=== PATIENT | female | born 2000 | race Caucasian/White ===

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

== ENCOUNTER 2019-01-01 08:35 | Emergency (ER) | payer MEDICAID, OTHER ==
[~2019-01-01] VITALS: Ht 157.5 cm; Wt 105.0 kg
[2019-01-01 08:44] VITALS: BP 136/97
== END 2019-01-01 09:53 | disposition home or self-care (01) ==
LOC: ER 08:35
DX: J02.8 Acute pharyngitis due to other specified organisms (principal); B97.89 Other viral agents as the cause of diseases classified elsewhere; F41.9 Anxiety disorder, unspecified; F12.90 Cannabis use, unspecified, uncomplicated
CPT/HCPCS: 87081; 87880; 99283

== ENCOUNTER 2019-05-14 21:53 | Inpatient (IN) | payer OTHER, MEDICAID ==
[~2019-05-14] VITALS: Ht 157.5 cm; Wt 93.5 kg
[2019-05-14] MEDS ORDERED: loperamide 2mg capsule PO PRN (22:45)
[2019-05-14] MEDS ORDERED: mag hydrox/Alum hydrox/simeth 30ml oral suspension PO PRN (22:45)
[2019-05-14] MEDS ORDERED: acetaminophen 325mg tablet PO PRN (22:45)
[2019-05-14] MEDS ORDERED: haloperidol 1mg tablet PO PRN (22:45)
[2019-05-14] MEDS ORDERED: QUET-1 PO (22:50)
[2019-05-14] MEDS: LORazepam 1 MG tablet PO PRN (23:17)
[2019-05-14] MEDS: haloperidol 5mg tablet PO PRN (23:18)
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
[2019-05-15 01:53] VITALS: BP 119/83
[2019-05-15 07:59] VITALS: BP 103/60
[2019-05-15] MEDS: LORazepam 1 MG tablet PO PRN (08:50)
[2019-05-15 09:14] LABS: CHOL/HDL RATIO 2.8 (0.00-4.99); CHOLESTEROL 111 MG/DL (0-200); HDL CHOLESTEROL 40 MG/DL (35-60); LDL CHOLESTEROL 63 MG/DL (50-100); TRIGLYCERIDES 69 MG/DL (20-135)
[2019-05-15 09:15] LABS: HEMOGLOBIN A1C 5.4 % (4.5-6.2)
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
--- NOTE | 2019-05-15 15:47 | NUR ---
Malnutrition consult: Pt unsure if wt loss however reports decreased appetite per malnutrition screen with RN. Pt with documented wt hx of 105 kg taken 01/01/19 however this appears to be an outlier as previous scaled weights are stable around 89-91 kg. Current scaled wt is 91.85 kg. Pt currently on regular diet documented with average 50% PO intake x 2 meals not meeting nutrient needs. Pt with no decrease in muscle strength or edema. Pt currently lacks a minimum of two criteria for malnutrition. Will continue to follow and monitor need for nutrition intervention. Addendum: 05/15/19 at [address] Amended: Links added.
[2019-05-15] MEDS: LORazepam 1 MG tablet PO SCH ×2 (17:49→22:19)
[2019-05-15] MEDS: haloperidol 5mg tablet PO PRN (17:49)
--- NOTE | 2019-05-15 18:23 | NUR ---
INCREASED ANXIETY AND FEARFULNESS The patient had increased anxiety and fear due to incidents on the unit involving other patients which were loud and frightening to her. She was on the floor hiding and required quite a bit of reassurance to get back into bed. C/O hearing voices and appeared to be RIS. New orders received for Ativan, and also given Haldol.
[2019-05-15 20:00] VITALS: BP 153/99
[2019-05-15] MEDS ORDERED: lithium carbonate 150mg capsule PO SCH (21:00)
[2019-05-15] MEDS: quetiapine 100mg tablet PO SCH (21:09)
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
[2019-05-16] MEDS: LORazepam 1 MG tablet PO SCH ×4 (02:00→20:30)
--- NOTE | 2019-05-16 02:02 | NUR ---
Mother's Contact Information: Ana or
[2019-05-16 07:31] VITALS: BP 139/93
[2019-05-16] MEDS ORDERED: risperiDONE 0.5mg tablet PO SCH (08:00)
[2019-05-16] MEDS ORDERED: FLU VACC QS2019-20 36MOS UP/PF 60 MCG/0.5 ML SYRINGE IMVAC ONE (10:00)
--- NOTE | 2019-05-16 13:45 | NUR ---
ATTEMPTED TO REACH MOTHER Attempted to call Pamela's mother, Ana (ph# and ) at both phone #'s. Left message on first # and was unable to leave a message on the 2nd #. Will continue to try to reach her. ESTHER Robb
[2019-05-16] MEDS ORDERED: haloperidol lactate 5mg/ml inj ONE ×2 (14:04→14:08)
[2019-05-16] MEDS ORDERED: LORazepam 2 mg/ml vial ONE (14:05)
[2019-05-16] MEDS ORDERED: diphenhydrAMINE 50 mg/ml inj ONE (14:05)
[2019-05-16 15:00] VITALS: BP 137/89
[2019-05-16 15:15] VITALS: BP 134/106
--- NOTE | 2019-05-16 15:55 | NUR ---
ATTEMPTED ELOPEMENT At approximately 1400 patient was walking in hallway, with sitter near alarmed exit nearest to the Group Room, tried to exit the door, staff intervened and the patient became combative punching, kicking and spitting. She was escorted to her room where her behavior escalated. She was taken to Observation Room and restrained. She was given ([id number]) Ativan, Benedryl, Haldol injection. She was able to calm down and at approximately 1540 she was able to go back to her own room where she is now resting comfortably.
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
[2019-05-16] MEDS: risperiDONE 0.5mg tablet PO SCH (20:00)
[2019-05-16] MEDS: lithium carbonate 150mg capsule PO SCH (20:00)
[2019-05-16] MEDS: quetiapine 100mg tablet PO SCH (20:30)
[2019-05-16] MEDS ORDERED: diphenhydrAMINE 50 mg/ml inj IM ONE (20:45)
[2019-05-16] MEDS ORDERED: haloperidol lactate 5mg/ml inj IM ONE (20:45)
[2019-05-16] MEDS ORDERED: LORazepam 2 mg/ml vial IM ONE (20:45)
[2019-05-17] MEDS: LORazepam 1 MG tablet PO SCH ×3 (02:00→20:00)
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
[2019-05-17] MEDS: risperiDONE 0.5mg tablet PO SCH ×2 (08:06→20:00)
[2019-05-17] MEDS: lithium carbonate 150mg capsule PO SCH ×2 (08:07→20:00)
[2019-05-17] MEDS ORDERED: LORazepam 1 MG tablet PO SCH (14:00)
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
[2019-05-17] MEDS: LORazepam 1 MG tablet PO PRN (15:34)
--- NOTE | 2019-05-17 15:51 | NUR ---
MEDICAL RECORDS REQUEST Faxed request for medical records to [facility] in [place], [place]. ESTHER Robb
[2019-05-17] MEDS: haloperidol 5mg tablet PO PRN (15:53)
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
[2019-05-17] MEDS ORDERED: QUEtiapine 25mg tablet PO SCH (21:00)
[2019-05-18] MEDS: LORazepam 1 MG tablet PO SCH ×5 (02:00→20:48)
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
[2019-05-18 07:30] VITALS: BP 150/100
[2019-05-18] MEDS: lithium carbonate 150mg capsule PO SCH ×2 (07:41→20:49)
[2019-05-18] MEDS: risperiDONE 0.5mg tablet PO SCH ×2 (07:48→08:47)
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
[2019-05-18 19:45] VITALS: BP 128/73
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
[2019-05-19] MEDS: LORazepam 1 MG tablet PO SCH ×4 (02:00→20:19)
[2019-05-19 07:34] VITALS: BP 129/79
[2019-05-19] MEDS: lithium carbonate 150mg capsule PO SCH ×2 (07:45→20:19)
[2019-05-19] MEDS: PALIPERIDONE 3 MG TAB.ER.24 PO SCH (07:45)
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
[2019-05-19] MEDS: magnesium hydroxide 30ml (MOM) UD suspension PO PRN (14:16)
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
[2019-05-19 19:31] VITALS: BP 133/81
[2019-05-19] MEDS: docusate sod 100mg capsule PO SCH (20:18)
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
[2019-05-20] MEDS: LORazepam 1 MG tablet PO SCH ×4 (02:00→21:55)
[2019-05-20 07:29] VITALS: BP 124/69
[2019-05-20] MEDS: lithium carbonate 150mg capsule PO SCH ×2 (07:42→21:55)
[2019-05-20] MEDS: PALIPERIDONE 3 MG TAB.ER.24 PO SCH (07:43)
[2019-05-20] MEDS: docusate sod 100mg capsule PO SCH ×2 (07:43→21:55)
[2019-05-20] MEDS: venlafaxine XR 37.5mg cap (Q24H) PO SCH (07:43)
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
[2019-05-20] MEDS ORDERED: ondansetron 4mg rapidly disintigrating tab PO PRN ×2 (14:45→16:00)
[2019-05-20] MEDS: ondansetron 4mg rapidly disintigrating tab PO PRN (15:29)
--- NOTE | 2019-05-20 19:54 | NUR ---
Discussed case with Seun Blair, and order obtained to D/C LOS, spoke with patient prior to doing so and instructed to let staff know if she has any needs or problems that arise. She verbalized understanding, she is clear and coherent.
[2019-05-20 20:31] VITALS: BP 133/85
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
[2019-05-21] MEDS: LORazepam 1 MG tablet PO SCH ×2 (02:00→07:42)
[2019-05-21] MEDS: venlafaxine XR 37.5mg cap (Q24H) PO SCH (07:42)
[2019-05-21] MEDS: PALIPERIDONE 3 MG TAB.ER.24 PO SCH ×2 (07:42→20:26)
[2019-05-21] MEDS: docusate sod 100mg capsule PO SCH ×2 (07:42→20:26)
[2019-05-21] MEDS: lithium carbonate 150mg capsule PO SCH ×2 (07:43→20:26)
[2019-05-21 07:49] VITALS: BP 128/77
[2019-05-21] MEDS: acetaminophen 325mg tablet PO PRN (13:09)
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
[2019-05-21 19:54] VITALS: BP 152/94
[2019-05-21] MEDS: QUEtiapine 25mg tablet PO PRN ×2 (20:26→23:23)
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
[2019-05-22] MEDS: docusate sod 100mg capsule PO SCH ×2 (08:04→20:43)
[2019-05-22] MEDS: lithium carbonate 150mg capsule PO SCH ×2 (08:04→20:43)
[2019-05-22] MEDS: venlafaxine XR 37.5mg cap (Q24H) PO SCH (08:09)
[2019-05-22 08:59] VITALS: BP 155/97
--- NOTE | 2019-05-22 11:14 | NUR ---
Faxed Medical Records request to [facility] for Pamela's ER visit on 05/07/19. ESTHER Robb
--- NOTE | 2019-05-22 11:46 | NUR ---
Reassessment: PO fluctuating average PO intake about 50% regular diet. Per MD note, patient c/o nausea and is receiving zofran. Last BM 05/21; has prn milk of magnesia last given 05/19. Weight is stable. Pt with documented wt hx of 105 kg taken 01/01/19 however this appears to be an outlier as previous scaled weights are stable around 89-91 kg. Current scaled wt is 91.85 kg. Will continue to monitor. Rec: 1. continue regular diet; encourage PO 2. bowel care as needed 3. weekly wts Addendum: 05/22/19 at [address] Amended: Links added.
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
[2019-05-22] MEDS: hydrOXYzine 25 MG tablet PO PRN ×3 (12:23→22:32)
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
--- NOTE | 2019-05-22 18:42 | NUR ---
Art Therapy/Brainspotting 1:1 - The below named therapist, met with patient per request from both the patient and the treatment team to assist patient with the reduction of anxiety and internalized distress. Intervention: Provided attuned empathic listening to identify a Resource Spot using bi-lateral sound, with art expression. Patient reported a reduction in her emotional distress having found a "calm spot" she was able to focus on and experience. Patient noted her place of calm was a 5/10 using the SUDS. Will follow up and remain available for support as determined by the needs of this patient and the treatment team. Anna Javed MA, SEO ASSISTANT #[id number] [facility] Art Therapist
[2019-05-22 20:01] VITALS: BP 171/107
[2019-05-22] MEDS: PALIPERIDONE 3 MG TAB.ER.24 PO SCH (20:44)
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
[2019-05-23 08:00] VITALS: BP 151/101
[2019-05-23] MEDS: docusate sod 100mg capsule PO SCH ×2 (08:00→20:44)
[2019-05-23] MEDS: venlafaxine XR 37.5mg cap (Q24H) PO SCH (08:00)
[2019-05-23] MEDS: lithium carbonate 150mg capsule PO SCH ×2 (08:01→20:43)
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
[2019-05-23 20:00] VITALS: BP 134/80
[2019-05-23] MEDS: PALIPERIDONE 3 MG TAB.ER.24 PO SCH (20:43)
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
[2019-05-24] MEDS: hydrOXYzine 25 MG tablet PO PRN (01:42)
[2019-05-24] MEDS: docusate sod 100mg capsule PO SCH ×2 (07:50→21:29)
[2019-05-24] MEDS: venlafaxine XR 37.5mg cap (Q24H) PO SCH (07:50)
[2019-05-24] MEDS: lithium carbonate 150mg capsule PO SCH ×2 (07:51→21:29)
[2019-05-24 08:00] VITALS: BP 114/106
--- NOTE | 2019-05-24 13:44 | NUR ---
Reassessment: PO fluctuating average PO intake about 50% regular diet; appetite increasing slightly from admission. Poor appetite likely r/t HPI. Last BM 05/22; has prn milk of magnesia last given 05/19 and receiving routine colace. Weight is stable. Will continue to monitor. Rec: 1. continue regular diet; encourage PO 2. bowel care as needed 3. weekly wts Addendum: 05/24/19 at [address] Amended: Links added.
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
[2019-05-24 20:00] VITALS: BP 121/75
[2019-05-24] MEDS ORDERED: prazosin 1mg capsule PO SCH (21:00)
[2019-05-24] MEDS: PALIPERIDONE 3 MG TAB.ER.24 PO SCH (21:29)
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
[2019-05-25 08:00] VITALS: BP 141/95
[2019-05-25] MEDS: lithium carbonate 150mg capsule PO SCH (08:33)
[2019-05-25] MEDS: docusate sod 100mg capsule PO SCH ×2 (08:33→20:47)
[2019-05-25] MEDS: venlafaxine XR 37.5mg cap (Q24H) PO SCH (08:33)
--- NOTE | 2019-05-25 12:25 | NUR ---
Reassessment: PO intake up to 75-100% since RD assessment. [facility] 05/24. No nutrition intervention warranted at this time. Will continue to follow. Addendum: 05/25/19 at [address] Amended: Links added.
[2019-05-25] MEDS: hydrOXYzine 25 MG tablet PO PRN (12:35)
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
[2019-05-25 20:05] VITALS: BP 141/84
[2019-05-25] MEDS ORDERED: lithium carbonate 150mg capsule PO SCH (21:00)
[2019-05-25] MEDS ORDERED: prazosin 1mg capsule PO SCH (21:00)
[2019-05-25] MEDS ORDERED: PALIPERIDONE 3 MG TAB.ER.24 PO SCH (21:00)
[2019-05-25] MEDS: LORazepam 1 MG tablet PO PRN (23:46)
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
[2019-05-26 07:48] VITALS: BP 129/84
[2019-05-26 07:53] LABS: HCG SERUM QL NEGATIVE
[2019-05-26] MEDS: ondansetron 4mg rapidly disintigrating tab PO PRN (07:55)
[2019-05-26 07:59] LABS: BETA HCG,QUANTITATIVE < 1.0 mIU/ml
[2019-05-26] MEDS: docusate sod 100mg capsule PO SCH ×2 (08:49→20:26)
[2019-05-26] MEDS: venlafaxine XR 37.5mg cap (Q24H) PO SCH (08:50)
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
[2019-05-26] MEDS ORDERED: benztropine 1mg tablet PO PRN (18:25)
[2019-05-26] MEDS: acetaminophen 325mg tablet PO PRN (19:22)
[2019-05-26 19:41] VITALS: BP 137/85
[2019-05-26 20:20] VITALS: BP 137/85
[2019-05-26] MEDS: lithium carbonate 150mg capsule PO SCH (20:25)
[2019-05-26] MEDS: traZODone 50mg tablet PO SCH (20:26)
[2019-05-26] MEDS ORDERED: PALIPERIDONE 3 MG TAB.ER.24 PO SCH (21:00)
[2019-05-26] MEDS ORDERED: prazosin 1mg capsule PO SCH (21:00)
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
[2019-05-27 07:35] VITALS: BP 118/73
[2019-05-27] MEDS: docusate sod 100mg capsule PO SCH ×2 (08:10→20:44)
[2019-05-27] MEDS: venlafaxine XR 37.5mg cap (Q24H) PO SCH (08:10)
[2019-05-27] MEDS: lithium carbonate 150mg capsule PO SCH ×2 (08:10→20:44)
[2019-05-27] MEDS ORDERED: aripiprazole 400mg suspension ER syringe IM ONE (10:40)
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
[2019-05-27 20:28] VITALS: BP 135/84
[2019-05-27] MEDS: traZODone 50mg tablet PO SCH (20:44)
[2019-05-27] MEDS: PALIPERIDONE 3 MG TAB.ER.24 PO SCH (20:45)
[2019-05-27] MEDS ORDERED: prazosin 1mg capsule PO SCH (21:00)
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
[2019-05-28] MEDS: acetaminophen 325mg tablet PO PRN (01:16)
[2019-05-28 08:00] VITALS: BP 144/87
[2019-05-28] MEDS: docusate sod 100mg capsule PO SCH ×2 (08:03→20:23)
[2019-05-28] MEDS: lithium carbonate 150mg capsule PO SCH ×2 (08:03→20:24)
[2019-05-28] MEDS: venlafaxine XR 37.5mg cap (Q24H) PO SCH (08:03)
--- NOTE | 2019-05-28 09:46 | NUR ---
Reassessment: Pt PO 75-100% avg regular meals meeting needs. LBM 05/26. No nutrition concerns at this time. Will continue to monitor. Rec: 1. continue regular diet; encourage PO 2. bowel care as needed 3. weekly wts Addendum: 05/28/19 at [address] Amended: Links added.
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
[2019-05-28 19:04] VITALS: BP_SYST 134; BP_SYST 150; BP_DIAS 80; BP_DIAS 91
[2019-05-28] MEDS: PALIPERIDONE 3 MG TAB.ER.24 PO SCH (20:23)
[2019-05-28] MEDS: traZODone 50mg tablet PO SCH (20:23)
[2019-05-28] MEDS: prazosin 5mg capsule PO SCH (20:24)
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
[2019-05-29 07:27] VITALS: BP 120/68
[2019-05-29] MEDS: lithium carbonate 150mg capsule PO SCH ×2 (07:50→20:19)
[2019-05-29] MEDS: venlafaxine XR 37.5mg cap (Q24H) PO SCH (07:51)
[2019-05-29] MEDS: docusate sod 100mg capsule PO SCH ×2 (07:51→20:19)
[2019-05-29] MEDS: magnesium hydroxide 30ml (MOM) UD suspension PO PRN (08:05)
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
[2019-05-29 19:44] VITALS: BP 148/87
[2019-05-29] MEDS: traZODone 50mg tablet PO SCH (20:19)
[2019-05-29] MEDS: prazosin 5mg capsule PO SCH (20:19)
[2019-05-29] MEDS: PALIPERIDONE 3 MG TAB.ER.24 PO SCH (20:19)
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
[2019-05-30 07:49] VITALS: BP 141/83
[2019-05-30] MEDS: docusate sod 100mg capsule PO SCH ×2 (08:27→20:41)
[2019-05-30] MEDS: lithium carbonate 150mg capsule PO SCH ×2 (08:28→20:42)
[2019-05-30] MEDS: venlafaxine XR 75mg capsule (Q24H) PO SCH (08:28)
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
[2019-05-30 20:00] VITALS: BP 158/98
[2019-05-30] MEDS: prazosin 5mg capsule PO SCH (20:42)
[2019-05-30] MEDS: traZODone 50mg tablet PO SCH (20:42)
[2019-05-30] MEDS: PALIPERIDONE 3 MG TAB.ER.24 PO SCH (20:42)
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
[2019-05-31] MEDS: lithium carbonate 150mg capsule PO SCH (07:57)
[2019-05-31] MEDS: docusate sod 100mg capsule PO SCH (07:57)
[2019-05-31] MEDS: venlafaxine XR 75mg capsule (Q24H) PO SCH (07:57)
[2019-05-31 08:00] VITALS: BP 144/85
[2019-05-31] MEDS ORDERED: DOCU100C40 PO (11:08)
[2019-05-31] MEDS ORDERED: ONDA4TAB12 PO (11:08)
[2019-05-31] MEDS ORDERED: HYDR-3686 PO (11:08)
[2019-05-31] MEDS ORDERED: TRAZ-251 PO (11:08)
[2019-05-31] MEDS ORDERED: VENL75CA61 PO (11:08)
[2019-05-31] MEDS ORDERED: PALI3TAB5 PO (11:08)
[2019-05-31] MEDS ORDERED: PRAZ5CAP2 PO (11:08)
[2019-05-31] MEDS ORDERED: HALO5TAB PO (11:08)
[2019-05-31] MEDS ORDERED: LITH150C8 PO (11:08)
--- NOTE | 2019-05-31 17:01 | NUR ---
Nursing Discharge Note: Pt discharged from [facility] @1650 to her mother and is returning home with her. Pt was in pleasant mood with bright affect and smiling a lot and happy to see her mom. She was very thankful for all staff had done for her. Pt denies any SI and has been improving since admission. She was in no physical or emotional distress, and understood all her discharge plans and instructions. Pt's valuables were inventoried and returned to her. Pt denies needing nicotine replacement.
== END 2019-05-31 16:50 | disposition home or self-care (01) | DRG 885 ==
LOC: ADULT MH 22:42
PROVIDERS: ADMIT Psychiatry & Neurology Psychiatry; ATTEND Psychiatry & Neurology Psychiatry
DX: F31.30 Bipolar disorder, current episode depressed, mild or moderate severity, unspecified (principal); E66.9 Obesity, unspecified; F43.10 Post-traumatic stress disorder, unspecified; G47.9 Sleep disorder, unspecified; F41.9 Anxiety disorder, unspecified; Z68.37 Body mass index [BMI] 37.0-37.9, adult
CPT/HCPCS: 36415; 80061; 80178; 83036; 84702; 84703; 87081; 99285; J1200; J1630; J2060; Z7610

== ENCOUNTER 2020-06-05 19:02 | Emergency (ER) | payer MEDICAID, OTHER ==
[~2020-06-05] VITALS: Ht 157.5 cm; Wt 106.8 kg
[~2020-06-05 19:02] MED LIST changes: +DOCU100C40 PO; +HALO5TAB PO; +HYDR-3686 PO; +LITH150C8 PO; -LORA0.5T PO; +ONDA4TAB12 PO; +PALI3TAB5 PO; +PRAZ5CAP2 PO; +TRAZ-251 PO; +VENL75CA61 PO
[2020-06-05 19:50] VITALS: BP 152/87
[2020-06-05] MEDS ORDERED: IBUP-1984 PO (20:55)
[2020-06-05] MEDS ORDERED: AMOX-422 PO (20:55)
== END 2020-06-05 21:00 | disposition home or self-care (01) ==
LOC: ER 19:03
DX: J02.9 Acute pharyngitis, unspecified (principal); F41.9 Anxiety disorder, unspecified; F12.90 Cannabis use, unspecified, uncomplicated; Z79.2 Long term (current) use of antibiotics; Z79.899 Other long term (current) drug therapy
CPT/HCPCS: 87081; 87880; 99283

== ENCOUNTER 2020-12-06 10:59 | Emergency (ER) | payer OTHER ==
[~2020-12-06] VITALS: Ht 157.5 cm; Wt 97.5 kg
[2020-12-06 17:02] LABS: BASOPHILS % (AUTO) 0.3 % (0-1); EOSINOPHILS % (AUTO) 0.1 % (0-6); HEMATOCRIT 42.5 % (35.0-45.0); LYMPHOCYTES % (AUTO) 17.8 % (21-51); MEAN CORPUSCULAR HEMOGLOBIN 25.9 PG (27.0-31.0); MEAN CORPUSCULAR HGB CONC 32.8 g/dL (33.0-36.5); MEAN CORPUSCULAR VOLUME 78.8 FL (78-98); MEAN PLATELET VOLUME 9.3 FL (7.4-10.4); MONOCYTES # (AUTO) 0.6 X10'3 (0-0.9); MONOCYTES % (AUTO) 5.3 % (2-12); NEUTROPHILS # (AUTO) 8.6 X10'3 (1.8-7.7); NEUTROPHILS % (AUTO) 76.5 % (42-75); PLATELET COUNT 278 X10'3 (140-440); RED CELL DISTRIBUTION WIDTH 17.3 % (11.5-14.5); WHITE BLOOD COUNT 11.2 X10'3 (4.5-11.0)
[2020-12-06 17:15] LABS: ALANINE AMINOTRANSFERASE 39 U/L (12-78); ALBUMIN 4.4 G/DL (3.4-5.0); ALBUMIN/GLOBULIN RATIO 1.1 (1.1-1.5); ALKALINE PHOSPHATASE 72 IU/L (46-116); ANION GAP 14 (8-16); ASPARTATE AMINO TRANSFERASE 32 U/L (10-37); BILIRUBIN,TOTAL 0.7 MG/DL (0.1-1.0); BLOOD UREA NITROGEN 12 MG/DL (7-18); BUN/CREATININE RATIO 15.6 (6.6-38.0); CALCIUM 8.8 MG/DL (8.5-10.1); CHLORIDE 106 MMOL/L (99-107); CREATININE 0.77 MG/DL (0.40-0.90); GLUCOSE 107 MG/DL (70-104); POTASSIUM 4.3 MMOL/L (3.5-5.1); SODIUM 142 MMOL/L (135-145); TOTAL CARBON DIOXIDE 22.2 MMOL/L (24-32); TOTAL PROTEIN 8.5 G/DL (6.4-8.2); eGFR > 90 ML/MIN
[2020-12-06 17:22] LABS: ETHANOL < 0.010 GM/DL (0.0-0.010)
[2020-12-06] MEDS ORDERED: LORazepam 1 MG tablet PO ONE (18:10)
--- NOTE | 2020-12-06 19:30 | NUR ---
THe patient was moved to bed 27 in the ER. Her mother was with her providing emotional support. The patient was agitated and misinterpreting her surroundings. She asked her mother if she really was her mother. She reported hearing voices "every secound" Reports voices telling her to harm herself. The patient was hyperverbal and frieghtened.
[2020-12-06] MEDS ORDERED: OLANZapine 5mg rapidly disint. tablet PO STA (19:48)
--- NOTE | 2020-12-06 19:49 | NUR ---
Call to psychiatry and spoke with Seun Blair regarding patient agitation and zyprexa 10mg was ordered.
[2020-12-06] MEDS ORDERED: LORazepam 1 MG tablet PO STA (20:41)
[2020-12-06] MEDS ORDERED: NO HOME MEDS (22:18)
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
--- NOTE | 2020-12-06 22:36 | NUR ---
MOTHER, ASHLEY LOREE, , [phone]
--- NOTE | 2020-12-06 22:37 | NUR ---
The patient appears to be sleeping at this time
--- NOTE | 2020-12-06 23:33 | NUR ---
The patient appears to be sleeping
--- NOTE | 2020-12-07 01:07 | NUR ---
The patient appears to be sleeping
--- NOTE | 2020-12-07 03:05 | NUR ---
The patient appears to be sleeping
--- NOTE | 2020-12-07 04:41 | NUR ---
The patient appears to be sleeping
[2020-12-07 05:51] LABS: URINE HCG NEGATIVE (NEG)
[2020-12-07 05:59] LABS: URINE AMPHETAMINE SCREEN NEGATIVE (Neg); URINE BARBITUATE SCREEN NEGATIVE (Neg); URINE BENZODIAZEPINES SCREEN NEGATIVE (Neg); URINE CANNABINOID SCREEN POSITIVE (Neg); URINE COCAINE SCREEN NEGATIVE (Neg); URINE METHADONE SCREEN NEGATIVE (Neg); URINE OPIATE SCREEN NEGATIVE (Neg); URINE PHENCYCLIDINE SCREEN NEGATIVE (Neg)
--- NOTE | 2020-12-07 06:11 | NUR ---
Packet sent to [facility]
[2020-12-07 06:13] LABS: CLARITY,URINE CLEAR (Clear); COLOR,URINE YELLOW (Yellow); GLUCOSE, URINE NEGATIVE (Neg); KETONES,URINE 40 mg/dl (Neg); LEUKOCYTE ESTERASE ,URINE NEGATIVE (Neg); NITRITES, URINE NEGATIVE (Neg); OCCULT BLOOD,URINE NEGATIVE (Neg); PROTEIN,URINE NEGATIVE (Neg); UROBILINOGEN,URINE 0.2 E.U/dL (0.2-1.0)
[2020-12-07 06:18] LABS: UA COLLECTION TYPE VOIDED
[2020-12-07] MEDS: hydrOXYzine 25 MG tablet PO PRN ×3 (06:42→17:44)
--- NOTE | 2020-12-07 07:19 | NUR ---
0630 Assumed care of patient, patient pacing infront of her bed, hyperverbal and thougths are disorganized, requested order for PRN Visteril 50mg Q 6 hours prn Anxiety/agitation. Pateint took medication, medication education given patient states she has taken this medication in the past. 0720 patient resting quietly waitng for breakfast.
--- NOTE | 2020-12-07 11:29 | NUR ---
Patient ate 100% of her breakfast, has been up and around using the restroom, calling her mom and asking random question which have been appropriate for being in the over flow ER unit. Patient has been coloring and journaling.
--- NOTE | 2020-12-07 15:29 | NUR ---
Patient sitting by peer coloring and playing connect four, converstion is light. Patient denies S/I and is looking forward to her mom visiting today.
--- NOTE | 2020-12-07 17:34 | NUR ---
Patient states she had a decent day today. Patient was heard talking to here self today, mostly postive talk. Patient denies SI/HI, Cortez did ask this wrtier if it was ridiculous to think that you hear voice that are not present?, this magnetic tape typewriter operator explined that it is ok to hear voices as long as you know the differnce between hearing voices and reality. Patient states all her voices are of people she knows and are good voices.
--- NOTE | 2020-12-07 17:39 | NUR ---
5843 Patient mother phoned and stated she would be by before visiting hours are over today. This bond writer advised she needs to be vaccinated or have a neg covid test to be able to visit. Patients mother stated she is vaccinated.
--- NOTE | 2020-12-07 17:45 | NUR ---
9863 Patient stated that she is seeing flashing light "I think it could be anxiety", this ghost writer offered Visteril 50mg prn, patient accepted. Patient continues to visit with peers.
--- NOTE | 2020-12-07 18:45 | NUR ---
One to one with the patient to assess for past med history. The patient is a poor historian. She is quite labile but redirectable. Discussed med history and admitting presentation with Dr. Huffman and orders received.
--- NOTE | 2020-12-07 19:10 | NUR ---
THe patient is easily overstimulated on the unit. She denied hearing voices but she was observed whispering to herself. She is labile. She is accepting redirection
[2020-12-07] MEDS ORDERED: LORazepam 1 MG tablet PO ONE (19:20)
[2020-12-07] MEDS ORDERED: acetaminophen 325mg tablet PO ONE (19:20)
[2020-12-07] MEDS ORDERED: ARIPIPRAZOLE 10 MG TABLET PO SCH ×2 (19:35→21:00)
[2020-12-07] MEDS: ARIPIPRAZOLE 10 MG TABLET PO SCH (20:25)
[2020-12-07] MEDS: prazosin 1mg capsule PO SCH (20:25)
[2020-12-07] MEDS ORDERED: prazosin 1mg capsule PO SCH (21:00)
--- NOTE | 2020-12-07 21:30 | NUR ---
The patient is awake and restless, disorganized and responding to internal stimuli but redirectable.
--- NOTE | 2020-12-07 22:43 | NUR ---
The patient appears to be sleeping at this time
--- NOTE | 2020-12-08 00:55 | NUR ---
The patient appears to be sleeping
--- NOTE | 2020-12-08 02:45 | NUR ---
The patient is awake and making biazarre statements.She was encouraged to try and get more sleep due to the early hour
--- NOTE | 2020-12-08 04:09 | NUR ---
THe patient is awake and resting on bed quietly laughing and talking to herself
[2020-12-08] MEDS: hydrOXYzine 25 MG tablet PO PRN ×3 (04:44→20:43)
--- NOTE | 2020-12-08 06:11 | NUR ---
The patient is awake and using the bathroom. At some point the patient had vomited on the floor by her bed.
[2020-12-08] MEDS ORDERED: ondansetron 4mg rapidly disintigrating tab PO PRN (07:00)
--- NOTE | 2020-12-08 07:09 | NUR ---
pt up in bed comes back and forth to nurses station and forget what she has to say or she want ,pt talks to herself and laugh and cries in btw.pt is easily redirectable .denies any nausea or vomiting at this time ,will medicate the pt if needed .rao contreras is avaiable.
--- NOTE | 2020-12-08 08:04 | NUR ---
pt was resting in bed quietly for 20 mins ,woke up to eat her breakfast .
--- NOTE | 2020-12-08 08:37 | NUR ---
pt ate her breakfast 30-40%.
--- NOTE | 2020-12-08 09:25 | NUR ---
pt cleaning up her bed at this time.
--- NOTE | 2020-12-08 11:07 | NUR ---
pt up and walking in the hallway .denies any cocnern.
--- NOTE | 2020-12-08 11:51 | NUR ---
pt feeling nauseaous medicated with zofran and also given atarax prn for anxious behaviour.
--- NOTE | 2020-12-08 12:00 | NUR ---
pt talking to her mom at this time.
--- NOTE | 2020-12-08 13:00 | NUR ---
food tray given to the pt by juan johnson.
--- NOTE | 2020-12-08 15:03 | NUR ---
notified dr sharp regarding pt c/o chest pressure,flushed feeling ,anxitey and unable to rest .as per md verbal order for zyprexia 5 mg po onces.
[2020-12-08] MEDS ORDERED: OLANZapine 2.5MG tablet PO ONE (15:05)
--- NOTE | 2020-12-08 16:50 | NUR ---
spoke to dr fine regarding pt condition informe dthat pt was restless throughout the day ,hasn't rested ,anxious,c/o headache ,flushed feeling ,checked temp was 98.3 ,pt c/o bad dreams and has hallucination ,informed that pt given zyprexia as per dr sharp orders and pt was given attarax earlier has not helped the pt ,order for ativian 1 mg po prn q 6 hr as needed for anxitey .and as per md he will review the pt meds tognight or tomm.
[2020-12-08] MEDS: LORazepam 1 MG tablet PO PRN (17:03)
--- NOTE | 2020-12-08 17:14 | NUR ---
pt medicated with prn ativian ,provided warm blanket ,no distress noted ,will cont to monitor,pt has hallucination ans looks scared and cries in between.
--- NOTE | 2020-12-08 17:33 | NUR ---
pt is hallucinating ,pt is talking to her self ,feeling confused and scared ,pt stated that she does not know whether she is in reality or what ,pt cries and laugh in btw,disoragised and flight of ideas.pt medicated with ativian by orly vazquez .
--- NOTE | 2020-12-08 17:50 | NUR ---
spoke to blanco from [facility] for the pt transfer report,needed updated covid test ,so order covid test rapid sadie that pt can be placed to the centre around 2300 tognight for further care and tx ,discussed the pt vitals ,medication ,pt condition and behaviour also discussed the pt lab results.as per blanco rn needed updated vitals on pt and negative covid result to accept the pt ,informed that pt take bp meds sadie that is whybp was high ,as per blanco call [phone] with covid results and fax covid result at [phone] .as per blanco he will call [place] office for transportation arrangements.
--- NOTE | 2020-12-08 18:42 | NUR ---
[facility] calling to confirm pt has placement at [facility]. sent covid negative results to [facility].
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
[2020-12-08] MEDS: prazosin 1mg capsule PO SCH ×2 (20:40→21:00)
[2020-12-08] MEDS: ARIPIPRAZOLE 10 MG TABLET PO SCH (20:44)
--- NOTE | 2020-12-08 20:49 | NUR ---
PT GIVEN HS MEDS.
[2020-12-09] MEDS: LORazepam 1 MG tablet PO PRN (00:24)
--- NOTE | 2020-12-09 00:36 | NUR ---
PT AWAKE AFTER SLEEPING FOR 3 HOURS. PT IS CONTINUING TO CRY AND TALK TO HERSELF. SHE IS AGITATED SO GIVEN PRN DOSE OF ATIVAN.
--- NOTE | 2020-12-09 03:21 | NUR ---
Pt remains asleep. Lying on her left side with blankets covering to her shouders. RR 14 and unlabored. Sitter and RN within view of Pt aat.
[2020-12-09 05:26] VITALS: BP 133/89
--- NOTE | 2020-12-09 06:59 | NUR ---
Patient sleeping on right side. No distress observed. Continue to monitor.
[2020-12-09] MEDS: hydrOXYzine 25 MG tablet PO PRN (09:52)
== END 2020-12-09 09:55 ==
LOC: ER 11:02
DX: R45.851 Suicidal ideations (principal); Z20.822 Contact with and (suspected) exposure to COVID-19; F23 Brief psychotic disorder; F41.9 Anxiety disorder, unspecified; F12.90 Cannabis use, unspecified, uncomplicated; Z79.899 Other long term (current) drug therapy
CPT/HCPCS: 36415; 80053; 80305; 80320; 81003; 81025; 84443; 85025; 87635; 99285; C9803; Q0177

== ENCOUNTER 2023-08-30 19:43 | Emergency (ER) | payer OTHER, MEDICAID ==
[~2023-08-30] VITALS: Ht 157.5 cm; Wt 116.2 kg
[~2023-08-30 19:43] MED LIST changes: -DOCU100C40 PO; -HALO5TAB PO; -HYDR-3686 PO; -LITH150C8 PO; +NO HOME MEDS; -ONDA4TAB12 PO; -PALI3TAB5 PO; -PRAZ5CAP2 PO; -TRAZ-251 PO; -VENL75CA61 PO
[2023-08-30 19:48] VITALS: BP 140/75; PULSE 85; RESP 16; TEMP 98; O2SAT 100
== END 2023-08-31 00:02 | disposition left against medical advice (07) ==
LOC: ER 19:43
DX: L60.0 Ingrowing nail (principal); Z53.21 Procedure and treatment not carried out due to patient leaving prior to being seen by health care provider